=== PATIENT | male | born 1950 | race Caucasian/White ===

== ENCOUNTER 2017-04-19 14:58 | Emergency (ER) | payer OTHER, MEDICARE ==
[2017-04-19 15:09] VITALS: BMI 21.2
--- NOTE | 2017-04-19 16:20 | PDOC ---
History of Present Illness - General Chief Complaint: Pain, Acute Stated Complaint: POST SURGERY Time Seen by Provider: 04/19/17 15:31 - History of Present Illness Initial Comments: 04/19/17 17:58 The patient is a 66 year old male with a history of Stage IV Lung CA, HTN, PE on eloquis, Gallstones s/p Percutaneous GB drain who presents for evaluation of abdominal pain. The patient reports acute onset of constant sharp abdominal pain prompting his presentation to the ED for evaluation. He notes that he had the percutaneous gb drain placed 5 months ago, but states his abdominal pain is more periumbilical and RLQ. He states that he is on morphine and oxycodone at home, but has continued pain despite his home pain medications. He denies any fevers, chills, chest pain, nausea, vomiting, or changes with urination or bowel movements. Past History - Past Medical History Allergies/Adverse Reactions: Allergies Allergy/AdvReac Type Severity Reaction Status Date / Time No Known Allergies Allergy Verified 04/19/17 15:49 Cancer: Yes (lung) COPD: Yes Lung CA: Yes - Suicide/Smoking/Psychosocial Hx Smoking History: Current every day smoker Have you smoked in the past 12 months: Yes Number of Cigarettes Smoked Daily: 30 Information on smoking cessation initiated: No Hx Alcohol Use: No Drug/Substance Use Hx: No Substance Use Type: None Review of Systems - Review of Systems Comments:: 04/19/17 18:03 Constitutional: No fevers, chills, fatigue, malaise HEENT: No Rhinorrhea, nasal congestion, visual changes Cardiovascular: No chest pain, syncope, palpitations, lightheadedness Respiratory: No Cough, SOB, Hemoptysis, Gastrointestinal: Abdominal pain. No Nausea, Vomiting, Constipation, Diarrhea, Melena Genitourinary: No Dysuria, Frequency, Urgency, Hesitancy, Hematuria, Flank pain Musculoskeletal: No Myalgia, arthralgia Skin: No rashes, bruising, pallor Neurologic: No Headache, Dizziness, Numbness, Weakness, or Tingling Psychiatric: No Hallucinations. No SI or HI *Physical Exam - Vital Signs Last Vital Signs Temp Pulse Resp BP Pulse Ox 98.3 F 96 H 22 94/57 92 L 04/19/17 15:02 04/19/17 15:02 04/19/17 15:02 04/19/17 15:02 04/19/17 15:02 - Physical Exam Comments: 04/19/17 18:04 General Appearance: Nourished. In Moderate Apparent Distress HEENT: EOMI, MAAME. No Pharyngeal Erythema, Tonsillar Exudate, Tonsillar Erythema Neck: No Cervical Lymphadenopathy Respiratory/Chest: Lungs Clear, Normal Breath Sounds. Bilateral crackles auscultated on exam. No Wheezing Cardiovascular: Regular Rhythm, Regular Rate. No Murmur, Gallops, Rubs Gastrointestinal/Abdominal: Normal Bowel Sounds, Diffuse tenderness to palpation worse in the periumbilical region with guarding. 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 Differential includes but is not limited to: Abdominal abscess , infectious, constipation, metabolic derangement. Given the patient's abdominal tenderness and history of ca and surgery, we will obtain a cbc, cmp, troponin, chest plain film, and abdomen ct to evaluate further. We will treat the patient's pain with morphine here in the ED and continue to monitor and reassess. 04/19/17 18:07 We discussed the case with the patient's primary care physician Dr. Gleason who recommended admission with Dr. Back. Patient pending labs and abdomen ct. 04/19/17 18:08 Patient signed out to the night team dispo pending abdomen ct. *DC/Admit/Observation/Transfer Diagnosis at time of Disposition: Intractable abdominal pain - Discharge Dispostion Disposition: HOME Condition at time of disposition: Stable - Referrals Referrals: James Gleason MD [Primary Care Provider] - - Patient Instructions Printed Discharge Instructions: DI for Abdominal Pain-Adult - Post Discharge Activity
--- NOTE | 2017-04-19 16:31 | PDOC ---
Attending Attestation - Resident Resident Name: Alexis Fernandez - ED Attending Attestation I have performed the following: I have examined & evaluated the patient, The case was reviewed & discussed with the resident, I agree w/resident's findings & plan, Exceptions are as noted - HPI HPI: 66 yo M history lung CA, COPD, abdominal aneurysm, PE on eliquis presents with abd pain. He had recent placement of gallbladder drain at [facility] in [place]. He states that after the drain was placed, he was feeling better, but then suddenly developed pain today. Pain is sharp, moderate to severe, R sided. Drain has had unchanged output. No fever/chills, vomiting, diarrhea. - Physicial Exam PE: GENERAL: Awake, alert, and fully oriented, in no acute distress HEAD: No signs of trauma EYES: PERRLA, EOMI, sclera anicteric, conjunctiva clear ENT: Auricles normal inspection, hearing grossly normal, nares patent, oropharynx clear without exudates. Moist mucosa NECK: Normal ROM, supple, no lymphadenopathy, JVD, or masses LUNGS: Breath sounds equal, clear to auscultation bilaterally. No wheezes, and no crackles HEART: Regular rate and rhythm, normal S1 and S2, no murmurs, rubs or gallops ABDOMEN: +Drain to RUQ, draining bile. +R-sided abd tenderness. Soft, hyperactive bowel sounds. +Guarding, no rebound. No masses EXTREMITIES: Normal range of motion, no edema. No clubbing or cyanosis. No cords, erythema, or tenderness NEUROLOGICAL: Cranial nerves II through XII grossly intact. Normal speech, normal gait SKIN: Warm, Dry, normal turgor, no rashes or lesions noted. - Medical Decision Making Pt with abdominal pain, history of gallstones with gallbladder drain. Will obtain labs and CT to evaluate for drain displacement vs intraabdominal infection or collection. Likely admission.
[2017-04-19 16:43] LABS: VENOUS PC02 54.4 mmHg (38-52); VENOUS PH 7.38 (7.32-7.42)
[2017-04-19 16:44] LABS: VENOUS PO2 14.7 mmHg (28-48)
[2017-04-19] MEDS ORDERED: morphine CARPU-JECT 4 MG/1 ML DISP.SYRIN IVPUSH ONE ×3 (16:45→21:14)
[2017-04-19] MEDS ORDERED: SODIUM CHLORIDE 1,000 ML IV STA (16:45)
[2017-04-19 16:52] LABS: BASO % 0.5 % (0-2.0); EOS % 2.2 % (0-4.5); HEMATOCRIT 42.1 % (35.4-49); MCH 26.3 pg (25.7-33.7); MCHC 33.3 g/dl (32.0-35.9); MEAN CELL VOLUME 78.8 fl (80-96); MEAN PLT VOLUME 6.6 fl (7.5-11.1); MONO % 10.8 % (3.8-10.2); NEUT % 64.5 % (42.8-82.8); PLATELET COUNT 369 K/MM3 (134-434); RBC 5.35 M/mm3 (4.00-5.60); RDW 16.7 % (11.9-15.9); WHITE BLOOD COUNT 9.6 K/mm3 (4.0-10.0)
[2017-04-19] MEDS ORDERED: morphine CARPU-JECT 10 MG/1 ML DISP.SYRIN ONE ×3 (16:58→21:28)
[2017-04-19 17:07] LABS: INR 1.49 (0.82-1.09); PROTHROMBIN TIME (PATIENT) 16.8 SEC (9.98-11.88)
[2017-04-19 17:10] LABS: ACTIVATED PTT 41.3 SECONDS (26.9-34.4)
[2017-04-19 17:29] LABS: ANION GAP 4 (8-16); BLOOD UREA NITROGEN 9 mg/dL (7-18); CALCIUM 8.2 mg/dL (8.5-10.1); CHLORIDE 95 mmol/L (98-107); CO2 31 mmol/L (21-32); CREATININE 0.8 mg/dL (0.7-1.3); GLUCOSE,RANDOM 101 mg/dL (74-106); LIPASE 47 U/L (73-393); MAGNESIUM 1.7 mg/dL (1.8-2.4); PHOSPHOROUS 3.7 mg/dL (2.5-4.9); POTASSIUM 3.8 mmol/L (3.5-5.1); SGOT/AST 6 U/L (15-37); SGPT/ALT 9 U/L (12-78); SODIUM 130 mmol/L (136-145)
[2017-04-19 17:31] LABS: ALK PHOS 148 U/L (45-117); BILIRUBIN,TOTAL 0.6 mg/dL (0.2-1.0); TOT PROT 7.9 g/dl (6.4-8.2)
--- NOTE | 2017-04-19 19:22 | PDOC ---
*Physical Exam - Vital Signs Last Vital Signs Temp Pulse Resp BP Pulse Ox 98.3 F 96 H 22 94/57 90 L 04/19/17 15:02 04/19/17 15:02 04/19/17 15:02 04/19/17 15:02 04/19/17 16:41 <Roel Cline - Last Filed: 04/19/17 21:54> - Vital Signs Last Vital Signs Temp Pulse Resp BP Pulse Ox 97.7 F 98 H 26 H 98/57 89 L 04/19/17 17:38 04/19/17 17:38 04/19/17 17:38 04/19/17 20:50 04/19/17 17:38 <Ann Mccauley - Last Filed: 04/19/17 21:59> ED Treatment Course - LABORATORY CBC & Chemistry Diagram: 04/19/17 16:41 04/19/17 16:41 - ADDITIONAL ORDERS Additional order review: Laboratory Results 04/19/17 04/19/17 04/19/17 16:41 16:41 16:41 PT with INR INR PTT (Actin FS) VBG pH POC VBG pCO2 POC VBG pO2 Mixed VBG HCO3 Sodium 130 L Potassium 3.8 Chloride 95 L Carbon Dioxide 31 Anion Gap 4 L BUN 9 Creatinine 0.8 Creat Clearance w eGFR > 60 Random Glucose 101 Lactic Acid 0.9 Calcium 8.2 L Phosphorus 3.7 Magnesium 1.7 L Total Bilirubin 0.6 AST 6 L ALT 9 L Alkaline Phosphatase 148 H Creatine Kinase 15 L Troponin I < 0.02 Total Protein 7.9 Albumin 3.0 L Lipase 47 L Blood Type O POSITIVE Antibody Screen Negative 04/19/17 04/19/17 16:41 16:00 PT with INR 16.80 H INR 1.49 H PTT (Actin FS) 41.3 H VBG pH 7.38 POC VBG pCO2 54.4 H POC VBG pO2 14.7 L* Mixed VBG HCO3 31.7 H Sodium Potassium Chloride Carbon Dioxide Anion Gap BUN Creatinine Creat Clearance w eGFR Random Glucose Lactic Acid Calcium Phosphorus Magnesium Total Bilirubin AST ALT Alkaline Phosphatase Creatine Kinase Troponin I Total Protein Albumin Lipase Blood Type Antibody Screen 04/19/17 16:41 RBC 5.35 MCV 78.8 L MCHC 33.3 RDW 16.7 H MPV 6.6 L Neutrophils % 64.5 Lymphocytes % 22.0 Monocytes % 10.8 H Eosinophils % 2.2 Basophils % 0.5 - Medications Given in the ED: ED Medications Discontinued Medications Generic Name Dose Route Start Last Admin Trade Name Dontae PRN Reason Stop Dose Admin Sodium Chloride 1,000 mls @ 1,000 mls/hr 04/19/17 16:45 04/19/17 17:03 Normal Saline - IV 04/19/17 17:44 1,000 mls/hr ASDIR STA Administration Morphine Sulfate 6 mg 04/19/17 16:45 04/19/17 17:03 Morphine Injection - IVPUSH 04/19/17 16:46 6 mg ONCE ONE Administration Morphine Sulfate 4 mg 04/19/17 18:27 04/19/17 18:29 Morphine Injection - IVPUSH 04/19/17 18:28 4 mg ONCE ONE Administration <Roel Cline - Last Filed: 04/19/17 21:54> - LABORATORY CBC & Chemistry Diagram: 04/19/17 16:41 04/19/17 16:41 - ADDITIONAL ORDERS Additional order review: Laboratory Results 04/19/17 04/19/17 04/19/17 20:40 16:41 16:41 PT with INR INR PTT (Actin FS) VBG pH POC VBG pCO2 POC VBG pO2 Mixed VBG HCO3 Sodium Potassium Chloride Carbon Dioxide Anion Gap BUN Creatinine Creat Clearance w eGFR Random Glucose Lactic Acid 0.9 Calcium Phosphorus Magnesium Total Bilirubin AST ALT Alkaline Phosphatase Creatine Kinase Troponin I Total Protein Albumin Lipase Urine Color Ltyellow Urine Appearance Clear Urine pH 7.0 Ur Specific [place] 1.024 Urine Protein Negative Urine Glucose (UA) Negative Urine Ketones Negative Urine Blood Negative Urine Nitrite Negative Urine Bilirubin Negative Urine Urobilinogen Negative Ur Leukocyte Esterase Negative Blood Type O POSITIVE Antibody Screen Negative 04/19/17 04/19/17 04/19/17 16:41 16:41 16:00 PT with INR 16.80 H INR 1.49 H PTT (Actin FS) 41.3 H VBG pH 7.38 POC VBG pCO2 54.4 H POC VBG pO2 14.7 L* Mixed VBG HCO3 31.7 H Sodium 130 L Potassium 3.8 Chloride 95 L Carbon Dioxide 31 Anion Gap 4 L BUN 9 Creatinine 0.8 Creat Clearance w eGFR > 60 Random Glucose 101 Lactic Acid Calcium 8.2 L Phosphorus 3.7 Magnesium 1.7 L Total Bilirubin 0.6 AST 6 L ALT 9 L Alkaline Phosphatase 148 H Creatine Kinase 15 L Troponin I < 0.02 Total Protein 7.9 Albumin 3.0 L Lipase 47 L Urine Color Urine Appearance Urine pH Ur Specific [place] Urine Protein Urine Glucose (UA) Urine Ketones Urine Blood Urine Nitrite Urine Bilirubin Urine Urobilinogen Ur Leukocyte Esterase Blood Type Antibody Screen 04/19/17 16:41 RBC 5.35 MCV 78.8 L MCHC 33.3 RDW 16.7 H MPV 6.6 L Neutrophils % 64.5 Lymphocytes % 22.0 Monocytes % 10.8 H Eosinophils % 2.2 Basophils % 0.5 - Medications Given in the ED: ED Medications Discontinued Medications Generic Name Dose Route Start Last Admin Trade Name Freq PRN Reason Stop Dose Admin Sodium Chloride 1,000 mls @ 1,000 mls/hr 04/19/17 16:45 04/19/17 17:03 Normal Saline - IV 04/19/17 17:44 1,000 mls/hr ASDIR STA Administration Morphine Sulfate 6 mg 04/19/17 16:45 04/19/17 17:03 Morphine Injection - IVPUSH 04/19/17 16:46 6 mg ONCE ONE Administration Morphine Sulfate 4 mg 04/19/17 18:27 04/19/17 18:29 Morphine Injection - IVPUSH 04/19/17 18:28 4 mg ONCE ONE Administration Morphine Sulfate 4 mg 04/19/17 21:14 04/19/17 21:27 Morphine Injection - IVPUSH 04/19/17 21:15 4 mg ONCE ONE Administration Sodium Chloride 2,000 ml 04/19/17 21:14 04/19/17 21:31 Normal Saline - IV 04/19/17 21:15 2,000 ml ONCE ONE Administration <Ann Mccauley - Last Filed: 04/19/17 21:59> Medical Decision Making - Medical Decision Making 04/19/17 19:22 The patient was signed out to me by day team, Dr. Fernandez. The patient is a 66M complaining of acute abdominal pain. Pending CTAP with IV contrast and admission to hospitalist. 04/19/17 21:53 CTAP does not show any acute pathology. Pt is requesting to leave AMA for a cigarette and he says he does not want to stay in the stretcher. Male med-surg bed confirmed. Dr. Chang accepts obs admission. <Roel Cline - Last Filed: 04/19/17 21:54> *DC/Admit/Observation/Transfer - Discharge Dispostion Admit: Yes <Roel Cline - Last Filed: 04/19/17 21:54> - Discharge Dispostion Admit: No <Ann Mccauley - Last Filed: 04/19/17 21:59> Diagnosis at time of Disposition: Intractable abdominal pain - Discharge Dispostion Disposition: HOME Condition at time of disposition: Stable - Referrals Referrals: James Gleason MD [Primary Care Provider] - - Patient Instructions - Post Discharge Activity
[2017-04-19 20:50] VITALS: BP 98/57
[2017-04-19 20:53] VITALS: PULSE 98; TEMP 97.7
[2017-04-19 21:01] LABS: URINE APPEARANCE CLEAR; URINE BILIRUBIN NEGATIVE (NEGATIVE); URINE BLOOD NEGATIVE (NEGATIVE); URINE COLOR LTYELLOW; URINE GLUCOSE (UA) NEGATIVE (NEGATIVE); URINE KETONE NEGATIVE (NEGATIVE); URINE LEUK ESTERASE NEGATIVE (NEGATIVE); URINE NITRITE NEGATIVE (NEGATIVE); URINE PROTEIN NEGATIVE (NEGATIVE); URINE UROBILINOGEN NEGATIVE mg/dL (0.2-1.0)
[2017-04-19] MEDS ORDERED: SODIUM CHLORIDE 0.9% 1000 ML INFUS.BAG IV ONE (21:14)
[2017-04-19] MEDS ORDERED: NICOTINE 14 MG/24 HOURS TOPICAL PATCH TD ONE (21:41)
--- NOTE | 2017-04-21 11:44 | EKG ---
Test Reason : Blood Pressure : / mmHG Vent. Rate : 089 BPM Atrial Rate : 089 BPM P-R Int : 210 ms QRS Dur : 088 ms QT Int : 348 ms P-R-T Axes : 049 044 037 degrees QTc Int : 423 ms SINUS RHYTHM WITH 1ST DEGREE A-V BLOCK ANTEROSEPTAL INFARCT , AGE UNDETERMINED ABNORMAL ECG WHEN COMPARED WITH ECG OF 25-MAY-2009 10:24, CT INTERVAL HAS INCREASED ANTEROSEPTAL INFARCT IS NOW PRESENT T WAVE INVERSION NOW EVIDENT IN ANTERIOR LEADS Confirmed by IRINA TORRES MD ([id number]) on 04/21/2017 11:44:14 AM Referred By: Confirmed By:IRINA TORRES MD
== END 2017-04-19 22:08 | disposition home or self-care (01) ==
LOC: JER 14:58
PROC: 3E033NZ Introduction of Analgesics, Hypnotics, Sedatives into Peripheral Vein, Percutaneous Approach (ICD-10-PCS; principal; 2017-04-19)
PROC: 3E033NZ Introduction of Analgesics, Hypnotics, Sedatives into Peripheral Vein, Percutaneous Approach (ICD-10-PCS; 2017-04-19)
PROC: 3E033NZ Introduction of Analgesics, Hypnotics, Sedatives into Peripheral Vein, Percutaneous Approach (ICD-10-PCS; 2017-04-19)
DX: R10.33 Periumbilical pain (principal); C34.90 Malignant neoplasm of unspecified part of unspecified bronchus or lung; Z86.711 Personal history of pulmonary embolism; Z79.01 Long term (current) use of anticoagulants; F17.210 Nicotine dependence, cigarettes, uncomplicated
CPT/HCPCS: 36415; 71045-TC; 74177-TC; 80053; 81003; 82550; 82803; 83605; 83690; 83735; 84100; 84484; 85025; 85610; 85730; 86850; 86900; 86901; 87040; 87086; 93005; 93010; 96374; 96376; 99284-25